=== PATIENT | male | born 1935 | race Caucasian/White ===

== ENCOUNTER 2019-02-13 11:13 | Inpatient (IN) | payer MEDICARE, OTHER ==
[~2019-02-13] VITALS: Ht 157.5 cm; Wt 61.4 kg
[2019-02-13] MEDS ORDERED: ALPR0.254 PO (14:21)
[2019-02-13] MEDS ORDERED: CARB1TAB2 PO (14:24)
[2019-02-13] MEDS ORDERED: ESCI20TA PO (14:24)
[2019-02-13] MEDS ORDERED: LUBI24CA7 PO (14:25)
[2019-02-13] MEDS ORDERED: MIRA50TA PO (14:25)
[2019-02-13] MEDS ORDERED: ROTI1PAT7 TD (14:26)
[2019-02-13] MEDS ORDERED: NUPLAZID PO (14:31)
--- NOTE | 2019-02-13 15:18 | ERD ---
ER Documentation Chief Complaint Chief Complaint c/o lower abdominal pain with constipation, recently diagnosed with volvulu HPI This is a 83-year-old male who presents for evaluation of constipation. History obtained mostly from the patient's daughter at the bedside, he has history of Parkinson's disease, and admitted about 2 weeks ago at [facility] was reportedly diagnosed with a volvulus. He had endoscopy done, but he has experienced a significant improvement in over the last 3 days, he has not had a bowel movement or passed stool. He has not had a fever, no urinary symptoms. ROS All systems reviewed and are negative except as per history of present illness. Medications Home Meds Reported Medications [Nuplazid] No Conflict Check, 34 MG PO DAILY 02/13/19 Rotigotine (NEUPRO) 1 Each Patch.td24, 1 EACH TD DAILY 8MG 02/13/19 Mirabegron (Myrbetriq) 50 Mg Tab.er.24h, 50 MG PO DAILY, TAB 02/13/19 Lubiprostone* (Amitiza*) 24 Mcg Capsule, 24 MCG PO BID, #60 CAP 02/13/19 Escitalopram Oxalate* (Lexapro*) 20 Mg Tablet, 20 MG PO DAILY, #30 TAB 02/13/19 Carbidopa/Levodopa (Sinemet 25-100 mg Tablet) 1 Each Tablet, 1 EACH PO TID, TAB 02/13/19 Alprazolam* (Alprazolam*) 0.25 Mg Tablet, 0.25 MG PO BID PRN for ANXIETY, TAB 02/13/19 Allergies Allergies: Coded Allergies: No Known Allergy (Unverified , 02/13/19) PMhx/Soc Medical and Surgical Hx: pt denies Surgical Hx History of Surgery: No Anesthesia Reaction: No Hx Neurological Disorder: Yes (Parkinsons) Hx Respiratory Disorders: No Hx Cardiac Disorders: No Hx Psychiatric Problems: No Hx Miscellaneous Medical Probl: No Hx Alcohol Use: No Hx Substance Use: No Hx Tobacco Use: No Smoking Status: Never smoker Physical Exam Vitals Vital Signs Date Temp Pulse Resp B/P (MAP) Pulse Ox O2 O2 Flow FiO2 Time Delivery Rate 02/13/19 77 12 166/82 98 Room Air 12:29 (110) 02/13/19 97.1 75 20 165/75 97 11:33 (105) Physical Exam Const: No acute distress, well-developed well-nourished Head: Atraumatic Eyes: Normal Conjunctiva ENT: Normal External Ears, Nose and Mouth. Neck: Full range of motion. No meningismus. Resp: Clear to auscultation bilaterally Cardio: Regular rate and rhythm, no murmurs Abd: Soft, non tender, there is mild distention, no focal tenderness, no rebound or guarding. Normal bowel sounds Skin: No petechiae or rashes Back: No midline or flank tenderness Ext: No cyanosis, or edema Neur: Awake and alert. Alert and oriented x3, pill-rolling tremor consistent with Parkinson's disease Psych: Normal Mood and Affect Result Diagram: 02/13/19 1227 02/13/19 1227 Results 24 hrs Laboratory Tests Test 02/13/19 12:27 02/13/19 14:09 White Blood Count 7.1 10^3/ul Red Blood Count 5.12 10^6/ul Hemoglobin 14.5 g/dl Hematocrit 44.6 % Mean Corpuscular Volume 87.1 fl Mean Corpuscular Hemoglobin 28.3 pg Mean Corpuscular Hemoglobin Concent 32.5 g/dl Red Cell Distribution Width 13.4 % Platelet Count 174 10^3/UL Mean Platelet Volume 9.9 fl Immature Granulocytes % 0.300 % Neutrophils % 74.8 % Lymphocytes % 17.3 % Monocytes % 7.1 % Eosinophils % 0.1 % Basophils % 0.4 % Nucleated Red Blood Cells % 0.0 /100WBC Immature Granulocytes # 0.020 10^3/ul Neutrophils # 5.3 10^3/ul Lymphocytes # 1.2 10^3/ul Monocytes # 0.5 10^3/ul Eosinophils # 0.0 10^3/ul Basophils # 0.0 10^3/ul Nucleated Red Blood Cells # 0.0 10^3/ul Sodium Level 140 mmol/L Potassium Level 4.2 mmol/L Chloride Level 103 mmol/L Carbon Dioxide Level 29 mmol/L Anion Gap 8 Blood Urea Nitrogen 23 mg/dl Creatinine 1.06 mg/dl Est Glomerular Filtrat Rate mL/min mL/min Glucose Level 115 mg/dl Calcium Level 9.5 mg/dl Total Bilirubin 0.6 mg/dl Direct Bilirubin 0.00 mg/dl Indirect Bilirubin 0.6 mg/dl Aspartate Amino Transf (AST/SGOT) 28 IU/L Alanine Aminotransferase (ALT/SGPT) 26 IU/L Alkaline Phosphatase 87 IU/L Troponin I < 0.012 ng/ml Total Protein 8.6 g/dl Albumin 4.5 g/dl Globulin 4.10 g/dl Albumin/Globulin Ratio 1.09 Lipase 163 U/L Bedside Urine pH (LAB) 6.5 Bedside Urine Protein (LAB) Negative Bedside Urine Glucose (UA) Negative Bedside Urine Ketones (LAB) Negative Bedside Urine Blood 2+ Bedside Urine Nitrite (LAB) Negative Bedside Urine Leukocyte Esterase (L Negative [place] [id number] Radiology Main Line: [phone] DIAGNOSTIC IMAGING REPORT Patient: KEVIN HERNANDEZ : 1935 Age: 83 Sex: M MR #: [id number] DOS: 02/13/19 1214 Ordering MD: FELIPA RAINES MD Location: E/R Room/Bed: PROCEDURE: CT abdomen and pelvis without contrast. CLINICAL INDICATION: Abdominal pain. TECHNIQUE: CT scan of the abdomen and pelvis without contrast was performed. Sagittal and coronal reformatted images were obtained from the axial source images. DICOM images are available. One or more of the following dose reduction techniques were used: Automated exposure control, adjustment of the mA and/or kV according to patient size, use of iterative reconstruction technique. CTDI = 6.20 mGy; DLP = 360.15 mGy-cm COMPARISON: None. FINDINGS: Visualized lower thorax: Traction bronchiectasis and pattern of interstitial lung disease, most likely idiopathic pulmonary fibrosis, is noted without evidence for acute infiltrate. There is no evidence for pleural effusion. Liver, gallbladder, pancreas and spleen: The liver is normal and size, contour and attenuation. There is no evidence for a liver mass or ductal dilatation. The gallbladder is unremarkable. No common bile duct abnormality is demonstrated. The pancreas is unremarkable. The spleen is normal in size with a superficial capsular calcification possibly the sequela of prior trauma or infection. Adrenal glands and genitourinary system: The adrenal glands are normal b ilaterally. The kidneys are normal and size, contour and attenuation with no evidence for masses, calculi or hydronephrosis. The ureters are unremarkable. No urinary bladder abnormality is demonstrated. The prostate gland is top normal in size. A small fat-containing right inguinal hernia is present. The area of the scrotum is unremarkable. Gastrointestinal system: A small sliding hiatal hernia is present the remainder of the stomach is normal in caliber without evidence of wall thickening. A small second portion duodenal diverticulum is incidentally noted. The small bowel is normal in caliber with no ileus, obstruction or wall thickening. The appendix and surrounding fat are within the limits of normal. Some hyperdense material similar to enteric contrast media is present throughout much of the colon. Copious fecal debris and gas are seen throughout the proximal and mid colon with some collapse of the distal colon without evidence for a colonic mass. Partial colonic obstruction is difficult to exclude. No pneumatosis, interloop ascites or mesenteric vascular engorgement is noted Peritoneum, retroperitoneum, lymph nodes and vessels: The abdominal aorta is normal in caliber. There is moderate aortic atherosclerotic calcification. The inferior vena cava is unremarkable. There is no evidence for adenopathy or mass. There is no ascites. No pneumoperitoneum is present Osseous structures and musculoskeletal findings: There is no fracture, lytic or blastic lesion. Bridging syndesmophytes of the visualized thoracic spine most likely reflect diffuse idiopathic skeletal hyperostosis. No muscular abnormality or soft tissue pathology is present. RPTAT:HJJR IMPRESSION: 1. Marked proximal and mid colonic distension raises concern for partial distal colonic obstruction versus colonic ileus, findings of uncertain etiology as no mass or transition point is identified. Follow-up evaluation is recommended. 2. No pneumoperitoneum, ascites or pneumatosis is seen, there is no mesenteric vascular engorgement. 3. There is a small sliding hiatal hernia and an incidental second portion duodenal diverticulum but no gastric or small bowel obstruction pattern is present. 4. Aortic atherosclerosis is present. Physician Brittany Date Time Electronically viewed and signed by Physician Brittany on 02/13/2019 13:49 JR/ CC: FELIPA RAINES MD [id number] Procedures/MDM 83-year-old male presents with obstipation. He had no infectious symptoms, and remained hemodynamically stable in the emergency department, his labs are overall unremarkable, his CT abdomen pelvis showed concern for partial distal colonic obstruction, versus ileus. I suspect that this most likely secondary to his Parkinson's disease, however male malignancy is also consideration, though per the patient's daughter he did have a work-up. Given his persistent pain, and no alleviation in symptoms, he will require admission. Accepting Care Team: Current data and ongoing care discussed. Primary: Jin Consulting: Leonidas EKG: Rate/Rhythm: Normal Sinus Rhythm QRS, ST, T-waves: No changes consistent w/ acute ischemia Impression: No evidence of ischemia or arrhythmia Departure Diagnosis: Primary Impression: Abdominal pain Abdominal location: unspecified location Qualified Codes: R10.9 - Unspecified abdominal pain Condition: Serious FELIPA RAINES MD Feb 13, 2019 15:18
[2019-02-13] MEDS ORDERED: ACETAMINOPHEN 325 MG TAB PO PRN ×2 (15:30→19:30)
[2019-02-13] MEDS ORDERED: ONDANSETRON 4 MG INJ IV PRN ×2 (15:30→19:30)
[2019-02-13 18:15] VITALS: BP 163/68; PULSE 80; RESP 20
[2019-02-13] MEDS ORDERED: NACL 0.9% 3 ML SYG IV SCH (19:30)
[2019-02-13] MEDS ORDERED: BISACODYL (EC) 5 MG TAB PO PRN (19:30)
[2019-02-13] MEDS ORDERED: MAGNESIUM HYDROXIDE 30ML CUP PO PRN (19:30)
[2019-02-13] MEDS ORDERED: BISACODYL (EC) 5 MG TAB PO ONE (19:30)
[2019-02-13] MEDS ORDERED: HYDROCODONE/APAP (5/325) TAB PO PRN (19:30)
[2019-02-13] MEDS ORDERED: NA PHOSPHATE/BIPHOS 133 ML ENEMA PR PRN (19:30)
[2019-02-13] MEDS ORDERED: morphine 2 MG INJ IV PRN (19:30)
--- NOTE | 2019-02-13 19:39 | HP ---
Date/Time of Note Date/Time of Note DATE: 02/13/19 TIME: 19:27 Assessment/Plan VTE Prophylaxis SCD applied (from Nsg): Yes Pharmacological prophylaxis: NA/contraindicated Pharm contraindication: low risk/ambulating Lines/Catheters IV Catheter Type (from Nrsg): Saline Lock Assessment/Plan Hospital Course 1. Abdominal pain secondary to constipation/ileus Patient's history of Parkinson's and lack of mass or transition point on CT suggest ileus over bowel obstruction Treat with senna, Colace, Dulcolax as well as milk of magnesia and enemas as needed Continue home Amitiza Simethicone for gas pain Surgery consultation has been obtained 2. History of Parkinson's Continue home meds Neurology consultation obtained 3. Depression Continue home Lexapro Prophylaxis: SCDs Result Diagram: 02/13/19 1227 02/13/19 1227 Results 24hrs Laboratory Tests Test 02/13/19 12:27 02/13/19 14:09 White Blood Count 7.1 Red Blood Count 5.12 Hemoglobin 14.5 Hematocrit 44.6 Mean Corpuscular Volume 87.1 Mean Corpuscular Hemoglobin 28.3 L Mean Corpuscular Hemoglobin Concent 32.5 Red Cell Distribution Width 13.4 Platelet Count 174 Mean Platelet Volume 9.9 Immature Granulocytes % 0.300 Neutrophils % 74.8 Lymphocytes % 17.3 Monocytes % 7.1 Eosinophils % 0.1 Basophils % 0.4 Nucleated Red Blood Cells % 0.0 Immature Granulocytes # 0.020 Neutrophils # 5.3 Lymphocytes # 1.2 Monocytes # 0.5 Eosinophils # 0.0 Basophils # 0.0 Nucleated Red Blood Cells # 0.0 Sodium Level 140 Potassium Level 4.2 Chloride Level 103 Carbon Dioxide Level 29 Anion Gap 8 Blood Urea Nitrogen 23 H Creatinine 1.06 Est Glomerular Filtrat Rate mL/min Glucose Level 115 Calcium Level 9.5 Total Bilirubin 0.6 Direct Bilirubin 0.00 Indirect Bilirubin 0.6 Aspartate Amino Transf (AST/SGOT) 28 Alanine Aminotransferase (ALT/SGPT) 26 Alkaline Phosphatase 87 Troponin I < 0.012 Total Protein 8.6 H Albumin 4.5 Globulin 4.10 H Albumin/Globulin Ratio 1.09 Lipase 163 Bedside Urine pH (LAB) 6.5 Bedside Urine Protein (LAB) Negative Bedside Urine Glucose (UA) Negative Bedside Urine Ketones (LAB) Negative Bedside Urine Blood 2+ H Bedside Urine Nitrite (LAB) Negative Bedside Urine Leukocyte Esterase (L Negative HPI/ROS Admit Date/Time Admit Date/Time Feb 13, 2019 at 15:19 Hx of Present Illness Patient is an 83-year-old male with a history of Parkinson's depression who pres ents with evaluation. Patient presents with constipation reports no bowel movement for last 4 or 5 days, patient reportedly was admitted at [facility] 2 weeks ago with similar symptoms, endoscopy was done but results are unknown. Patient reports pain in the lower abdomen, CT abdomen shows marked proximal and mid colonic distention raising concern for partial distal colonic obstruction versus colonic ileus, no mass or transition point is identified. Story is provided by patient's daughter who is bedside, patient is a poor historian. Patient has no other complaints this time. ROS Constitutional: no complaints, improved Eyes: no complaints ENT: no complaints Respiratory: no complaints Cardiovascular: no complaints Gastrointestinal: pain, constipation Genitourinary: no complaints Musculoskeletal: no complaints Skin: no complaints Neurologic: no complaints Endocrine: no complaints Lymphatic: no complaints Psychological: no complaints, nl mood/affect Immunologic: no complaints PMH/Family/Social Past Medical History Parkinson's Medications Current Medications Ondansetron HCl (Zofran Inj) 4 mg BRIDGE ORDER PRN IV NAUSEA/VOMITING; Start 02/13/19 at 15:30; Stop 02/14/19 at 15:29 Acetaminophen (Tylenol Tab) 650 mg ER BRIDGE PRN PO .MILD PAIN 1-3 OR TEMP; Start 02/13/19 at 15:30; Stop 02/14/19 at 15:29 Coded Allergies: No Known Allergy (Unverified , 02/13/19) Past Surgical History Past Surgical Hx: no surgical history Family History Significant Family History: no pertinent family hx Social History Alcohol Use: none Smoking Status: Never smoker Drug Use: none Exam/Review of Systems Vital Signs Vitals Vital Signs Date Temp Pulse Resp B/P (MAP) Pulse Ox O2 O2 Flow FiO2 Time Delivery Rate 02/13/19 97.8 80 20 163/68 96 Room Air 18:15 (99) Exam Constitutional: alert, oriented Respiratory: clear to auscultation Cardiovascular: regular rate and rhythm Gastrointestinal: soft; No distended Musculoskeletal: nl extremities to inspection KEVIN PELAEZ Feb 13, 2019 19:37
[2019-02-13 19:45] VITALS: BP 138/62; PULSE 76; RESP 18; Ht 157.5 cm; Wt 61.4 kg
[2019-02-13] MEDS: [UNRECOGNIZED DRUG - OTHER] XX SCH (20:00)
[2019-02-13] MEDS: 1/2 NS + KCL 20 MEQ 1,000 ML IV SCH (20:03)
[2019-02-13] MEDS ORDERED: [UNRECOGNIZED DRUG - OTHER] XX SCH (20:30)
[2019-02-13] MEDS: [UNRECOGNIZED DRUG - OTHER] XX SCH (20:30)
[2019-02-13] MEDS: (Mirabegron (Myrbetriq) 50 MG: PLEASE ASK FAMILY TO BRING IN XX SCH (20:30)
[2019-02-13] MEDS: CARBIDOPA/LEVODOPA (25/100) TAB PO SCH (21:17)
[2019-02-13] MEDS: LUBIPROSTONE 24 MCG CAP PO SCH (21:17)
[2019-02-13] MEDS: SENNA TAB PO SCH (21:17)
[2019-02-13] MEDS: ALPRAZOLAM 0.25 MG TAB PO PRN (21:17)
[2019-02-13] MEDS: DOCUSATE SODIUM 100 MG CAP PO SCH (21:17)
[2019-02-13] MEDS: ZOLPIDEM 5 MG TAB PO PRN (22:39)
[2019-02-14 02:23] VITALS: BP 123/85; PULSE 72; RESP 18
[2019-02-14] MEDS: [UNRECOGNIZED DRUG - OTHER] XX SCH ×2 (04:00→12:00)
[2019-02-14] MEDS: (Mirabegron (Myrbetriq) 50 MG: PLEASE ASK FAMILY TO BRING IN XX SCH (04:16)
[2019-02-14] MEDS: [UNRECOGNIZED DRUG - OTHER] XX SCH ×2 (04:17→12:30)
[2019-02-14] MEDS: ALPRAZOLAM 0.25 MG TAB PO PRN ×2 (07:12→20:08)
[2019-02-14] MEDS: 1/2 NS + KCL 20 MEQ 1,000 ML IV SCH (07:38)
[2019-02-14 07:42] VITALS: BP 124/68; PULSE 82; RESP 19
[2019-02-14] MEDS: SENNA TAB PO SCH ×2 (08:30→20:09)
[2019-02-14] MEDS: CARBIDOPA/LEVODOPA (25/100) TAB PO SCH ×3 (08:30→20:09)
[2019-02-14] MEDS: DOCUSATE SODIUM 100 MG CAP PO SCH ×2 (08:30→20:06)
[2019-02-14] MEDS: LUBIPROSTONE 24 MCG CAP PO SCH ×2 (08:30→20:09)
[2019-02-14] MEDS: ESCITALOPRAM 10 MG TAB PO SCH (08:30)
[2019-02-14] MEDS ORDERED: NON-FORMULARY/PATIENT OWN MED (Mirabegron (Myrbetriq) 50 MG) PO SCH (09:00)
--- NOTE | 2019-02-14 09:55 | CONSI ---
Assessment/Plan Assessment/Plan Assessment/Plan (Recall) 83 M c/ reported Hx of Parkinson's disease x 20 years...who presents for evaluation of GI Sx.. 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 P: Increase Sinemet 25/100mg to 1.5 tabs tid for now Cont Neupro as ordered Agree w/ Lubiprostone if not complicated by excessive nausea.. Other constipation management per primary PT/OT as tolerated Will follow clinically Consultation Date/Type/Reason Admit Date/Time Feb 13, 2019 at 15:19 Type of Consult Neurology Reason for Consultation Parkinsons Requesting Provider: KEVIN PELAEZ Date/Time of Note DATE: 02/14/19 TIME: 09:46 Hx of Present Illness Patient is an 83-year-old male with a history of Parkinson's and depression, who presents with evaluation. Patient presents with constipation reports no bowel movement for last 4 or 5 days, patient reportedly was admitted at [facility] 2 weeks ago with similar symptoms, endoscopy was done but results are unknown. Patient reports pain in the lower abdomen, CT abdomen shows marked proximal and mid colonic distention raising concern for partial distal colonic obstruction versus colonic ileus, no mass or transition point is identified. Story is provided by patient's daughter who is bedside, patient is a poor historian. Patient has no other complaints this time. He does not presently recall who his neurologist is. per HPI Objective Exam Vitals Vital Signs Date Temp Pulse Resp B/P (MAP) Pulse Ox O2 O2 Flow FiO2 Time Delivery Rate 02/14/19 97.2 82 19 124/68 96 Room Air 07:42 (86) Intake and Output 02/13/19 02/13/19 02/14/19 1515:00 23:00 07:00 IntakeIntake Total 1000 ml BalanceBalance 1000 ml Exam PE: Gen Appearance: No Apparent Distress HEENT: Normocephalic Cardiovascular: Regular rate Lungs: Clear bilaterally Abdomen: Soft Extremities: Dry NE: The patient was alert and oriented. Language was normal. Fund of knowledge was adequate. Pupils were equal and reactive to light. There was no afferent pupillary defect. Visual pisano were normal. Funduscopic examination was limited. Extra-ocular movements were full. Ptosis was absent. There was no nystagmus. Facial sensation was normal. Face was symmetric with normal strength. Hearing was intact. Palate movements were normal. Neck strength was normal. There was normal tongue bulk and speed of movement. Speech was hypophonic.. Tone was increased w/ cogwheeling. Muscle bulk was normal. I did not see fasciculations. There were mild to moderate rest tremors. Arms and legs were symmetric. Vibration sensation was normal. Temperature and pinprick sensation was normal. Rapid alternating movements were normal. There was no dysmetria. There was no intention tremor. Gait was deferred due to bedrest. Arm and leg reflexes were symmetric. Martinez's sign was absent. Plantar response s were flexor. Results Result Diagram: 02/14/19 0435 02/14/19 0436 Results 24hrs Laboratory Tests Test 02/13/19 12:27 02/13/19 14:09 02/14/19 04:35 02/14/19 04:36 White Blood Count 7.1 5.5 # Red Blood Count 5.12 4.78 Hemoglobin 14.5 13.7 L Hematocrit 44.6 41.5 L Mean Corpuscular 87.1 86.8 Volume Mean Corpuscular 28.3 L 28.7 L Hemoglobin Mean Corpuscular 32.5 33.0 Hemoglobin Concent Red Cell 13.4 13.7 Distribution Width Platelet Count 174 172 Mean Platelet Volume 9.9 10.4 Immature 0.300 0.200 Granulocytes % Neutrophils % 74.8 57.4 Lymphocytes % 17.3 30.2 Monocytes % 7.1 9.9 Eosinophils % 0.1 1.8 Basophils % 0.4 0.5 Nucleated Red Blood 0.0 0.0 Cells % Immature 0.020 0.010 Granulocytes # Neutrophils # 5.3 3.1 Lymphocytes # 1.2 1.7 Monocytes # 0.5 0.5 Eosinophils # 0.0 0.1 Basophils # 0.0 0.0 Nucleated Red Blood 0.0 0.0 Cells # Sodium Level 140 138 Potassium Level 4.2 3.9 Chloride Level 103 105 Carbon Dioxide Level 29 25 Anion Gap 8 8 Blood Urea Nitrogen 23 H 19 Creatinine 1.06 1.04 Est Glomerular Filtrat Rate mL/min Glucose Level 115 103 Calcium Level 9.5 9.4 Total Bilirubin 0.6 Direct Bilirubin 0.00 Indirect Bilirubin 0.6 Aspartate Amino 28 Transf (AST/SGOT) Alanine 26 Aminotransferase (AL T/SGPT) Alkaline Phosphatase 87 Troponin I < 0.012 Total Protein 8.6 H Albumin 4.5 Globulin 4.10 H Albumin/Globulin 1.09 Ratio Lipase 163 Bedside Urine pH 6.5 (LAB) Bedside Urine Negative Protein (LAB) Bedside Urine Negative Glucose (UA) Bedside Urine Negative Ketones (LAB) Bedside Urine Blood 2+ H Bedside Urine Negative Nitrite (LAB) Bedside Urine Negative Leukocyte Esterase (L Hemoglobin A1c 5.6 Phosphorus Level 3.9 Magnesium Level 2.0 Past Medical History reviewed Home Meds Reported Medications [Nuplazid] No Conflict Check, 34 MG PO DAILY 02/13/19 Rotigotine (NEUPRO) 1 Each Patch.td24, 1 EACH TD DAILY 8MG 02/13/19 Mirabegron (Myrbetriq) 50 Mg Tab.er.24h, 50 MG PO DAILY, TAB 02/13/19 Lubiprostone* (Amitiza*) 24 Mcg Capsule, 24 MCG PO BID, #60 CAP 02/13/19 Escitalopram Oxalate* (Lexapro*) 20 Mg Tablet, 20 MG PO DAILY, #30 TAB 02/13/19 Carbidopa/Levodopa (Sinemet 25-100 mg Tablet) 1 Each Tablet, 1 EACH PO TID, TAB 02/13/19 Alprazolam* (Alprazolam*) 0.25 Mg Tablet, 0.25 MG PO BID PRN for ANXIETY, TAB 02/13/19 Medications Current Medications Ondansetron HCl (Zofran Inj) 4 mg BRIDGE ORDER PRN IV NAUSEA/VOMITING; Start 02/13/19 at 15:30; Stop 02/14/19 at 15:29 Acetaminophen (Tylenol Tab) 650 mg ER BRIDGE PRN PO .MILD PAIN 1-3 OR TEMP; Start 02/13/19 at 15:30; Stop 02/14/19 at 15:29 Alprazolam (Xanax) 0.25 mg BID PRN PO ANXIETY Last administered on 02/14/19at 07:12; Admin Dose 0.25 MG; Start 02/13/19 at 19:30 Carbidopa/Levodopa (Sinemet (25/ 100)) 1 tab TID PO Last administered on 02/14/19at 08:30; Admin Dose 1 TAB; Start 02/13/19 at 21:00 Escitalopram Oxalate (Lexapro) 20 mg DAILY PO Last administered on 02/14/19at 08:30; Admin Dose 20 MG; Start 02/14/19 at 09:00 Lubiprostone (Amitiza) 24 mcg BID PO Last administered on 02/14/19at 08:30; Admin Dose 24 MCG; Start 02/13/19 at 21:00 Miscellaneous Information 50 mg DAILY PO ; Start 02/14/19 at 09:00; Status UNV Miscellaneous Information 1 each DAILY TD ; Start 02/14/19 at 09:00; Status UNV Miscellaneous Information 34 mg DAILY PO ; Start 02/14/19 at 09:00; Status UNV Potassium Chloride/Sodium Chloride 1,000 ml @ 80 mls/hr [id number] IV Last administered on 02/14/19at 07:38; Admin Dose 80 MLS/HR; Start 02/13/19 at 19:27 IV Flush (NS 3 ml) 3 ml PER PROTOCOL IV ; Start 02/13/19 at 19:30 Ondansetron HCl (Zofran Inj) 4 mg Q6H PRN IV NAUSEA/VOMITING; Start 02/13/19 at 19:30 Acetaminophen (Tylenol Tab) 650 mg Q6H PRN PO .PAIN 1-3 OR TEMP; Start 02/13/19 at 19:30 Acetaminophen/ Hydrocodone Bitart ([place] (5/325)) 1 tab Q6H PRN PO .MOD PAIN 4- 6; Start 02/13/19 at 19:30 Morphine Sulfate (morphine) 2 mg Q4H PRN IV .SEVERE PAIN 7-10; Start 02/13/19 at 19:30 Docusate Sodium (Colace) 200 mg Q12H PO Last administered on 02/14/19at 08:30; Admin Dose 200 MG; Start 02/13/19 at 19:30 Magnesium Hydroxide (Milk Of Mag) 30 ml DAILY PRN PO .CONSTIPATION; Start 02/13/19 at 19:30 Bisacodyl (Dulcolax) 5 mg DAILY PRN PO .CONSTIPATION; Start 02/13/19 at 19:30 Sodium Biphosphate/ Sodium Phosphate (Fleet Enema) 133 ml DAILY PRN MD .CONSTIPATION; Start 02/13/19 at 19:30 Zolpidem Tartrate (Ambien) 5 mg QHS PRN PO .INSOMNIA Last administered on 02/13/19at 22:39; Admin Dose 5 MG; Start 02/13/19 at 19:30 Senna (Senokot) 2 tab BID PO Last administered on 02/14/19at 08:30; Admin Dose 2 TAB; Start 02/13/19 at 21:00 Miscellaneous Information (*Order Clarification Bulletin) [Nuplazid] 34 MG, PLEASE ASK FAMILY... Q8H XX ; Start 02/13/19 at 20:00 Miscellaneous Information (*Order Clarification Bulletin) *Rotigotine (Neupro): PLEASE ... Q8H XX ; Start 02/13/19 at 20:30 Miscellaneous Information (*Order Clarification Bulletin) (Mirabegron (Myrbetriq) 50 MG: PLE... Q8H XX ; Start 02/13/19 at 20:30 Simethicone (Mylicon) 80 mg Q8 PO Last administered on 02/14/19at 05:59; Admin Dose 80 MG; Start 02/13/19 at 22:00 Allergies: Coded Allergies: No Known Allergy (Unverified , 02/13/19) Past Surgical History Past Surgical Hx: no surgical history Social History Alcohol Use: none Smoking Status: Never smoker Drug Use: none SUSANNA GALLEGOS Feb 14, 2019 09:55
[2019-02-14] MEDS ORDERED: PEG/ELECTROLYTES 4L BTL PO ONE (10:30)
--- NOTE | 2019-02-14 10:46 | CONS ---
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 Patient needs initial aggressive management of his constipation symptoms, if he fails management then surgical options can be considered. Option 1 would be a diverting colostomy vs. Sigmoid resection and primary anastomosis. Recommend: 1. Obtaining records from recent hospitalization 2. Plan of care from PCP and Neurologist 3. GI consult . Consultation Date/Type/Reason Admit Date/Time Feb 13, 2019 at 15:19 Type of Consult Gen Surgery Reason for Consultation Evaluation of abdominal pain Date/Time of Note DATE: 02/14/19 TIME: 10:37 Hx of Present Illness Patient is an 83-year-old male with a history of Parkinson's depression who presents with evaluation. Patient presents with constipation reports no bowel movement for last 4 or 5 days, patient reportedly was admitted at [facility] 2 weeks ago with similar symptoms, endoscopy was done but r esults are unknown. Patient reports pain in the lower abdomen, CT abdomen shows marked proximal and mid colonic distention raising concern for partial distal colonic obstruction versus colonic ileus, no mass or transition point is identified. Story is provided by patient's daughter who is bedside, patient is a poor historian. Patient has no other complaints this time. Past Medical History Home Meds Reported Medications [Nuplazid] No Conflict Check, 34 MG PO DAILY 02/13/19 Rotigotine (NEUPRO) 1 Each Patch.td24, 1 EACH TD DAILY 8MG 02/13/19 Mirabegron (Myrbetriq) 50 Mg Tab.er.24h, 50 MG PO DAILY, TAB 02/13/19 Lubiprostone* (Amitiza*) 24 Mcg Capsule, 24 MCG PO BID, #60 CAP 02/13/19 Escitalopram Oxalate* (Lexapro*) 20 Mg Tablet, 20 MG PO DAILY, #30 TAB 02/13/19 Carbidopa/Levodopa (Sinemet 25-100 mg Tablet) 1 Each Tablet, 1 EACH PO TID, TAB 02/13/19 Alprazolam* (Alprazolam*) 0.25 Mg Tablet, 0.25 MG PO BID PRN for ANXIETY, TAB 02/13/19 Medications Current Medications Alprazolam (Xanax) 0.25 mg BID PRN PO ANXIETY Last administered on 02/14/19at 07:12; Admin Dose 0.25 MG; Start 02/13/19 at 19:30 Escitalopram Oxalate (Lexapro) 20 mg DAILY PO Last administered on 02/14/19 08:30; Admin Dose 20 MG; Start 02/14/19 at 09:00 Lubiprostone (Amitiza) 24 mcg BID PO Last administered on 02/14/19 08:30; Admin Dose 24 MCG; Start 02/13/19 at 21:00 Miscellaneous Information 1 each DAILY TD ; Start 02/14/19 at 09:00; Status UNV Miscellaneous Information 34 mg DAILY PO ; Start 02/14/19 at 09:00; Status UNV IV Flush (NS 3 ml) 3 ml PER PROTOCOL IV ; Start 02/13/19 at 19:30 Ondansetron HCl (Zofran Inj) 4 mg Q6H PRN IV NAUSEA/VOMITING; Start 02/13/19 at 19:30 Acetaminophen (Tylenol Tab) 650 mg Q6H PRN PO .PAIN 1-3 OR TEMP; Start 02/13/19 at 19:30 Docusate Sodium (Colace) 200 mg Q12H PO Last administered on 02/14/19 08:30; Admin Dose 200 MG; Start 02/13/19 at 19:30 Magnesium Hydroxide (Milk Of Mag) 30 ml DAILY PRN PO .CONSTIPATION; Start 02/13/19 at 19:30 Bisacodyl (Dulcolax) 5 mg DAILY PRN PO .CONSTIPATION; Start 02/13/19 at 19:30 Sodium Biphosphate/ Sodium Phosphate (Fleet Enema) 133 ml DAILY PRN SC .CONSTIPATION; Start 02/13/19 at 19:30 Zolpidem Tartrate (Ambien) 5 mg QHS PRN PO .INSOMNIA Last administered on 02/13/19at 22:39; Admin Dose 5 MG; Start 02/13/19 at 19:30 Senna (Senokot) 2 tab BID PO Last administered on 02/14/19 08:30; Admin Dose 2 TAB; Start 02/13/19 at 21:00 Miscellaneous Information (*Order Clarification Bulletin) [Nuplazid] 34 MG, PLEASE ASK FAMILY... Q8H XX ; Start 02/13/19 at 20:00 Miscellaneous Information (*Order Clarification Bulletin) *Rotigotine (Neupro): PLEASE ... Q8H XX ; Start 02/13/19 at 20:30 Simethicone (Mylicon) 80 mg Q8 PO Last administered on 02/14/19at 05:59; Admin Dose 80 MG; Start 02/13/19 at 22:00 Carbidopa/Levodopa (Sinemet (25/ 100)) 1.5 tab TID PO ; Start 02/14/19 at 13:00 Allergies: Coded Allergies: No Known Allergy (Unverified , 02/13/19) Past Surgical History Past Surgical Hx: no surgical history Social History Alcohol Use: none Smoking Status: Never smoker Drug Use: none Exam/Review of Systems Exam Vitals Vital Signs Date Temp Pulse Resp B/P (MAP) Pulse Ox O2 O2 Flow FiO2 Time Delivery Rate 02/14/19 97.2 82 19 124/68 96 Room Air 07:42 (86) Intake and Output 02/13/19 02/13/19 02/14/19 1515:00 23:00 07:00 IntakeIntake Total 1000 ml BalanceBalance 1000 ml Results Result Diagram: 02/14/19 0435 02/14/19 0436 Results 24hrs Laboratory Tests Test 02/13/19 12:27 02/13/19 14:09 02/14/19 04:35 02/14/19 04:36 White Blood Count 7.1 5.5 # Red Blood Count 5.12 4.78 Hemoglobin 14.5 13.7 L Hematocrit 44.6 41.5 L Mean Corpuscular 87.1 86.8 Volume Mean Corpuscular 28.3 L 28.7 L Hemoglobin Mean Corpuscular 32.5 33.0 Hemoglobin Concent Red Cell 13.4 13.7 Distribution Width Platelet Count 174 172 Mean Platelet Volume 9.9 10.4 Immature 0.300 0.200 Granulocytes % Neutrophils % 74.8 57.4 Lymphocytes % 17.3 30.2 Monocytes % 7.1 9.9 Eosinophils % 0.1 1.8 Basophils % 0.4 0.5 Nucleated Red Blood 0.0 0.0 Cells % Immature 0.020 0.010 Granulocytes # Neutrophils # 5.3 3.1 Lymphocytes # 1.2 1.7 Monocytes # 0.5 0.5 Eosinophils # 0.0 0.1 Basophils # 0.0 0.0 Nucleated Red Blood 0.0 0.0 Cells # Sodium Level 140 138 Potassium Level 4.2 3.9 Chloride Level 103 105 Carbon Dioxide Level 29 25 Anion Gap 8 8 Blood Urea Nitrogen 23 H 19 Creatinine 1.06 1.04 Est Glomerular Filtrat Rate mL/min Glucose Level 115 103 Calcium Level 9.5 9.4 Total Bilirubin 0.6 Direct Bilirubin 0.00 Indirect Bilirubin 0.6 Aspartate Amino 28 Transf (AST/SGOT) Alanine 26 Aminotransferase (AL T/SGPT) Alkaline Phosphatase 87 Troponin I < 0.012 Total Protein 8.6 H Albumin 4.5 Globulin 4.10 H Albumin/Globulin 1.09 Ratio Lipase 163 Bedside Urine pH 6.5 (LAB) Bedside Urine Negative Protein (LAB) Bedside Urine Negative Glucose (UA) Bedside Urine Negative Ketones (LAB) Bedside Urine Blood 2+ H Bedside Urine Negative Nitrite (LAB) Bedside Urine Negative Leukocyte Esterase (L Hemoglobin A1c 5.6 Phosphorus Level 3.9 Magnesium Level 2.0 Imaging Imaging FINDINGS: Visualized lower thorax: Traction bronchiectasis and pattern of interstitial lung disease, most likely idiopathic pulmonary fibrosis, is noted without evidence for acute infiltrate. There is no evidence for pleural effusion. Liver, gallbladder, pancreas and spleen: The liver is normal and size, contour and attenuation. There is no evidence for a liver mass or ductal dilatation. The gallbladder is unremarkable. No common bile duct abnormality is demonstrated. The pancreas is unremarkable. The spleen is normal in size with a superficial capsular calcification possibly the sequela of prior trauma or infection. Adrenal glands and genitourinary system: The adrenal glands are normal bila terally. The kidneys are normal and size, contour and attenuation with no evidence for masses, calculi or hydronephrosis. The ureters are unremarkable. No urinary bladder abnormality is demonstrated. The prostate gland is top normal in size. A small fat-containing right inguinal hernia is present. The area of the scrotum is unremarkable. Gastrointestinal system: A small sliding hiatal hernia is present the remainder of the stomach is normal in caliber without evidence of wall thickening. A small second portion duodenal diverticulum is incidentally noted. The small bowel is normal in caliber with no ileus, obstruction or wall thickening. The appendix and surrounding fat are within the limits of normal. Some hyperdense material similar to enteric contrast media is present throughout much of the colon. Copious fecal debris and gas are seen throughout the proximal and mid colon with some collapse of the distal colon without evidence for a colonic mass. Partial colonic obstruction is difficult to exclude. No pneumatosis, interloop ascites or mesenteric vascular engorgement is noted Peritoneum, retroperitoneum, lymph nodes and vessels: The abdominal aorta is normal in caliber. There is moderate aortic atherosclerotic calcification. The inferior vena cava is unremarkable. There is no evidence for adenopathy or mass. There is no ascites. No pneumoperitoneum is present Osseous structures and musculoskeletal findings: There is no fracture, lytic or blastic lesion. Bridging syndesmophytes of the visualized thoracic spine most likely reflect diffuse idiopathic skeletal hyperostosis. No muscular abnormality or soft tissue pathology is present. RPTAT:HJJR IMPRESSION: 1. Marked proximal and mid colonic distension raises concern for partial distal colonic obstruction versus colonic ileus, findings of uncertain etiology as no mass or transition point is identified. Follow-up evaluation is recommended. 2. No pneumoperitoneum, ascites or pneumatosis is seen, there is no mesenteric vascular engorgement. 3. There is a small sliding hiatal hernia and an incidental second portion duodenal diverticulum but no gastric or small bowel obstruction pattern is present. 4. Aortic atherosclerosis is present. Medications Medication Current Medications Alprazolam (Xanax) 0.25 mg BID PRN PO ANXIETY Last administered on 02/14/19at 07:12; Admin Dose 0.25 MG; Start 02/13/19 at 19:30 Escitalopram Oxalate (Lexapro) 20 mg DAILY PO Last administered on 02/14/19at 08:30; Admin Dose 20 MG; Start 02/14/19 at 09:00 Lubiprostone (Amitiza) 24 mcg BID PO Last administered on 02/14/19at 08:30; Admin Dose 24 MCG; Start 02/13/19 at 21:00 Miscellaneous Information 1 each DAILY TD ; Start 02/14/19 at 09:00; Status UNV Miscellaneous Information 34 mg DAILY PO ; Start 02/14/19 at 09:00; Status UNV IV Flush (NS 3 ml) 3 ml PER PROTOCOL IV ; Start 02/13/19 at 19:30 Ondansetron HCl (Zofran Inj) 4 mg Q6H PRN IV NAUSEA/VOMITING; Start 02/13/19 at 19:30 Acetaminophen (Tylenol Tab) 650 mg Q6H PRN PO .PAIN 1-3 OR TEMP; Start 02/13/19 at 19:30 Docusate Sodium (Colace) 200 mg Q12H PO Last administered on 02/14/19at 08:30; Admin Dose 200 MG; Start 02/13/19 at 19:30 Magnesium Hydroxide (Milk Of Mag) 30 ml DAILY PRN PO .CONSTIPATION; Start 02/13/19 at 19:30 Bisacodyl (Dulcolax) 5 mg DAILY PRN PO .CONSTIPATION; Start 02/13/19 at 19:30 Sodium Biphosphate/ Sodium Phosphate (Fleet Enema) 133 ml DAILY PRN SC .CONSTIPATION; Start 02/13/19 at 19:30 Zolpidem Tartrate (Ambien) 5 mg QHS PRN PO .INSOMNIA Last administered on 02/13/19at 22:39; Admin Dose 5 MG; Start 02/13/19 at 19:30 Senna (Senokot) 2 tab BID PO Last administered on 02/14/19at 08:30; Admin Dose 2 TAB; Start 02/13/19 at 21:00 Miscellaneous Information (*Order Clarification Bulletin) [Nuplazid] 34 MG, PLEASE ASK FAMILY... Q8H XX ; Start 02/13/19 at 20:00 Miscellaneous Information (*Order Clarification Bulletin) *Rotigotine (Neupro): PLEASE ... Q8H XX ; Start 02/13/19 at 20:30 Simethicone (Mylicon) 80 mg Q8 PO Last administered on 02/14/19at 05:59; Admin Dose 80 MG; Start 02/13/19 at 22:00 Carbidopa/Levodopa (Sinemet (25/ 100)) 1.5 tab TID PO ; Start 02/14/19 at 13:00 ROB HERNANDEZ MD Feb 14, 2019 10:46
--- NOTE | 2019-02-14 11:54 | PN ---
Date/Time of Note Date/Time of Note DATE: 02/14/19 TIME: 11:52 Assessment/Plan VTE Prophylaxis Risk score (from Ns)>0 risk: 4 SCD applied (from Nsg): Yes Pharmacological prophylaxis: heparin Lines/Catheters IV Catheter Type (from Nrsg): Saline Lock Assessment/Plan Hospital Course 83 yo male with h/o PD presents with abdominal pain and found to have marked constipation 2/2 ileus - ileus likely 2/2 autonomic neuropathy and medication side effects - Hold anticholinergics - Bowel regimen PD: - Management per neurology Result Diagram: 02/14/19 0435 02/14/19 0436 Results 24hrs Laboratory Tests Test 02/13/19 12:27 02/13/19 14:09 02/14/19 04:35 02/14/19 04:36 White Blood Count 7.1 5.5 # Red Blood Count 5.12 4.78 Hemoglobin 14.5 13.7 L Hematocrit 44.6 41.5 L Mean Corpuscular 87.1 86.8 Volume Mean Corpuscular 28.3 L 28.7 L Hemoglobin Mean Corpuscular 32.5 33.0 Hemoglobin Concent Red Cell 13.4 13.7 Distribution Width Platelet Count 174 172 Mean Platelet Volume 9.9 10.4 Immature 0.300 0.200 Granulocytes % Neutrophils % 74.8 57.4 Lymphocytes % 17.3 30.2 Monocytes % 7.1 9.9 Eosinophils % 0.1 1.8 Basophils % 0.4 0.5 Nucleated Red Blood 0.0 0.0 Cells % Immature 0.020 0.010 Granulocytes # Neutrophils # 5.3 3.1 Lymphocytes # 1.2 1.7 Monocytes # 0.5 0.5 Eosinophils # 0.0 0.1 Basophils # 0.0 0.0 Nucleated Red Blood 0.0 0.0 Cells # Sodium Level 140 138 Potassium Level 4.2 3.9 Chloride Level 103 105 Carbon Dioxide Level 29 25 Anion Gap 8 8 Blood Urea Nitrogen 23 H 19 Creatinine 1.06 1.04 Est Glomerular Filtrat Rate mL/min Glucose Level 115 103 Calcium Level 9.5 9.4 Total Bilirubin 0.6 Direct Bilirubin 0.00 Indirect Bilirubin 0.6 Aspartate Amino 28 Transf (AST/SGOT) Alanine 26 Aminotransferase (AL T/SGPT) Alkaline Phosphatase 87 Troponin I < 0.012 Total Protein 8.6 H Albumin 4.5 Globulin 4.10 H Albumin/Globulin 1.09 Ratio Lipase 163 Bedside Urine pH 6.5 (LAB) Bedside Urine Negative Protein (LAB) Bedside Urine Negative Glucose (UA) Bedside Urine Negative Ketones (LAB) Bedside Urine Blood 2+ H Bedside Urine Negative Nitrite (LAB) Bedside Urine Negative Leukocyte Esterase (L Hemoglobin A1c 5.6 Phosphorus Level 3.9 Magnesium Level 2.0 Subjective 24 Hr Interval Summary Free Text/Dictation Remains constipated Exam/Review of Systems Exam Vitals Vital Signs Date Temp Pulse Resp B/P (MAP) Pulse Ox O2 O2 Flow FiO2 Time Delivery Rate 02/14/19 97.2 82 19 124/68 96 Room Air 07:42 (86) Intake and Output 02/13/19 02/13/19 02/14/19 1515:00 23:00 07:00 IntakeIntake Total 1000 ml BalanceBalance 1000 ml Constitutional: alert, oriented, well developed Psych: no complaints, nl mood/affect Head: normocephalic, atraumatic Eyes: nl conjunctiva, EOMI, nl lids, nl sclera, PERRL ENMT: nl external ears & nose, nl lips & teeth, nl nasal mucosa & septum Neck: supple, non-tender Respiratory: clear to auscultation, normal air movement Cardiovascular: regular rate and rhythm, nl pulses Gastrointestinal: soft, nl liver, spleen, non-tender Musculoskeletal: nl extremities to inspection, nl gait and stance Extremities: normal pulses 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2 Monocytes % 7.1 9.9 Eosinophils % 0.1 1.8 Basophils % 0.4 0.5 Nucleated Red Blood 0.0 0.0 Cells % Immature 0.020 0.010 Granulocytes # Neutrophils # 5.3 3.1 Lymphocytes # 1.2 1.7 Monocytes # 0.5 0.5 Eosinophils # 0.0 0.1 Basophils # 0.0 0.0 Nucleated Red Blood 0.0 0.0 Cells # Sodium Level 140 138 Potassium Level 4.2 3.9 Chloride Level 103 105 Carbon Dioxide Level 29 25 Anion Gap 8 8 Blood Urea Nitrogen 23 H 19 Creatinine 1.06 1.04 Est Glomerular Filtrat Rate mL/min Glucose Level 115 103 Calcium Level 9.5 9.4 Total Bilirubin 0.6 Direct Bilirubin 0.00 Indirect Bilirubin 0.6 Aspartate Amino 28 Transf (AST/SGOT) Alanine 26 Aminotransferase (AL T/SGPT) Alkaline Phosphatase 87 Troponin I < 0.012 Total Protein 8.6 H Albumin 4.5 Globulin 4.10 H Albumin/Globulin 1.09 Ratio Lipase 163 Bedside Urine pH 6.5 (LAB) Bedside Urine Negative Protein (LAB) Bedside Urine Negative Glucose (UA) Bedside Urine Negative Ketones (LAB) Bedside Urine Blood 2+ H Bedside Urine Negative Nitrite (LAB) Bedside Urine Negative Leukocyte Esterase (L Hemoglobin A1c 5.6 Phosphorus Level 3.9 Magnesium Level 2.0 Medications Medication Current Medications Alprazolam (Xanax) 0.25 mg BID PRN PO ANXIETY Last administered on 02/14/19at 07:12; Admin Dose 0.25 MG; Start 02/13/19 at 19:30 Escitalopram Oxalate (Lexapro) 20 mg DAILY PO Last administered on 02/14/19at 08:30; Admin Dose 20 MG; Start 02/14/19 at 09:00 Lubiprostone (Amitiza) 24 mcg BID PO Last administered on 02/14/19at 08:30; Admin Dose 24 MCG; Start 02/13/19 at 21:00 Miscellaneous Information 1 each DAILY TD ; Start 02/14/19 at 09:00; Status UNV Miscellaneous Information 34 mg DAILY PO ; Start 02/14/19 at 09:00; Status UNV IV Flush (NS 3 ml) 3 ml PER PROTOCOL IV ; Start 02/13/19 at 19:30 Ondansetron HCl (Zofran Inj) 4 mg Q6H PRN IV NAUSEA/VOMITING; Start 02/13/19 at 19:30 Acetaminophen (Tylenol Tab) 650 mg Q6H PRN PO .PAIN 1-3 OR TEMP; Start 02/13/19 at 19:30 Docusate Sodium (Colace) 200 mg Q12H PO Last administered on 02/14/19at 08:30; Admin Dose 200 MG; Start 02/13/19 at 19:30 Magnesium Hydroxide (Milk Of Mag) 30 ml DAILY PRN PO .CONSTIPATION; Start 02/13/19 at 19:30 Bisacodyl (Dulcolax) 5 mg DAILY PRN PO .CONSTIPATION; Start 02/13/19 at 19:30 Sodium Biphosphate/ Sodium Phosphate (Fleet Enema) 133 ml DAILY PRN ND .CONSTIPATION; Start 02/13/19 at 19:30 Zolpidem Tartrate (Ambien) 5 mg QHS PRN PO .INSOMNIA Last administered on 02/13/19at 22:39; Admin Dose 5 MG; Start 02/13/19 at 19:30 Senna (Senokot) 2 tab BID PO Last administered on 02/14/19at 08:30; Admin Dose 2 TAB; Start 02/13/19 at 21:00 Miscellaneous Information (*Order Clarification Bulletin) [Nuplazid] 34 MG, PLEASE ASK FAMILY... Q8H XX ; Start 02/13/19 at 20:00 Miscellaneous Information (*Order Clarification Bulletin) *Rotigotine (Neupro): PLEASE ... Q8H XX ; Start 02/13/19 at 20:30 Simethicone (Mylicon) 80 mg Q8 PO Last administered on 02/14/19at 05:59; Admin Dose 80 MG; Start 02/13/19 at 22:00 Carbidopa/Levodopa (Sinemet (25/ 100)) 1.5 tab TID PO ; Start 02/14/19 at 13:00 JULOI CESAR VALLE MD Feb 14, 2019 11:54
[2019-02-14 14:21] VITALS: BP 115/56; PULSE 75; RESP 17
[2019-02-14] MEDS: NEUPRO TRANSDERM SCH (15:00)
[2019-02-14] MEDS ORDERED: NUPLAZID 34MG CAPSULE PO SCH (15:30)
[2019-02-14 19:41] VITALS: BP 137/64; PULSE 71; RESP 18
[2019-02-14] MEDS ORDERED: NUPLAZID 34 MG CAPSULE PO SCH (21:00)
[2019-02-14] MEDS: ZOLPIDEM 5 MG TAB PO PRN (21:25)
[2019-02-15 01:39] VITALS: BP 154/68; PULSE 66; RESP 18
[2019-02-15] MEDS: ALPRAZOLAM 0.25 MG TAB PO PRN ×2 (06:37→20:59)
[2019-02-15 07:35] VITALS: BP 147/65; PULSE 67; RESP 20
[2019-02-15] MEDS: SENNA TAB PO SCH ×2 (08:39→20:58)
[2019-02-15] MEDS: CARBIDOPA/LEVODOPA (25/100) TAB PO SCH ×3 (08:39→20:59)
[2019-02-15] MEDS: DOCUSATE SODIUM 100 MG CAP PO SCH ×2 (08:39→20:57)
[2019-02-15] MEDS: ESCITALOPRAM 10 MG TAB PO SCH (08:39)
[2019-02-15] MEDS: LUBIPROSTONE 24 MCG CAP PO SCH ×2 (08:39→20:58)
[2019-02-15] MEDS: NEUPRO TRANSDERM SCH (08:55)
[2019-02-15] MEDS ORDERED: LACTULOSE 30ML CUP PO SCH (10:30)
--- NOTE | 2019-02-15 13:14 | PN ---
Date/Time of Note Date/Time of Note DATE: 02/15/19 TIME: 13:13 Assessment/Plan VTE Prophylaxis Risk score (from Nsg)>0 risk: 4 SCD applied (from Nsg): Yes Pharmacological prophylaxis: heparin Lines/Catheters IV Catheter Type (from Nrsg): Saline Lock Urinary Cath still in place: No Assessment/Plan Hospital Course 83 yo male with h/o PD presents with abdominal pain and found to have marked constipation 2/2 ileus - ileus likely 2/2 autonomic neuropathy and medication side effects - Hold anticholinergics - Bowel regimen added lactulose today but I do not suspect that he will need reyes yahaira acutely. Were trying conservative measures first PD: - Management per neurology Result Diagram: 02/14/1943402/14/19435 Subjective 24 Hr Interval Summary Free Text/Dictation The patient is very stressed out about being told he may need a surgery. A lot of anxiety about this. I reassured him that this is an acutely necessary and that we can try conservative therapies first. I discussed with his daughter how much his constipation is affecting him he seems to get a great amount of anxiety over the previous months from this. That said it sounds that he is never really taken any laxatives Exam/Review of Systems Exam Vitals Vital Signs Date Temp Pulse Resp B/P (MAP) Pulse Ox O2 O2 Flow FiO2 Time Delivery Rate 02/15/19 98.1 67 20 147/65 93 07:35 (92) 02/14/19 Room Air 07:42 Intake and Output 02/14/19 02/14/19 02/15/19 1414:59 22:59 06:59 IntakeIntake Total 600 ml BalanceBalance 600 ml Constitutional: alert, oriented, well developed Psych: no complaints, nl mood/affect Head: normocephalic, atraumatic Eyes: nl conjunctiva, EOMI, nl lids, nl sclera, PERRL ENMT: nl external ears & nose, nl lips & teeth, nl nasal mucosa & septum Neck: supple, non-tender Respiratory: clear to auscultation, normal air movement Cardiovascular: regular rate and rhythm, nl pulses Gastrointestinal: soft, nl liver, spleen, non-tender Musculoskeletal: nl extremities to inspection, nl gait and stance Extremities: normal pulses 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, nl mental status, nl speech, nl strength Skin: nl turgor; No rash or lesions Lymph: nl lymph nodes Medications Medication Current Medications Alprazolam (Xanax) 0.25 mg BID PRN PO ANXIETY Last administered on 02/15/19 06:37; Admin Dose 0.25 MG; Start 02/13/19 at 19:30 Escitalopram Oxalate (Lexapro) 20 mg DAILY PO Last administered on 02/15/19 08:39; Admin Dose 20 MG; Start 02/14/19 at 09:00 Lubiprostone (Amitiza) 24 mcg BID PO Last administered on 02/15/19 08:39; Admin Dose 24 MCG; Start 02/13/19 at 21:00 Patient Own Medication 1 ea DAILY TRANSDERM Last administered on 02/15/19 08:55; Admin Dose 1 EA; Start 02/14/19 at 15:00 IV Flush (NS 3 ml) 3 ml PER PROTOCOL IV ; Start 02/13/19 at 19:30 Ondansetron HCl (Zofran Inj) 4 mg Q6H PRN IV NAUSEA/VOMITING; Start 02/13/19 at 19:30 Acetaminophen (Tylenol Tab) 650 mg Q6H PRN PO .PAIN 1-3 OR TEMP Last administered on 02/15/19 06:37; Admin Dose 650 MG; Start 02/13/19 at 19:30 Docusate Sodium (Colace) 200 mg Q12H PO Last administered on 02/15/19 08:39; Admin Dose 200 MG; Start 02/13/19 at 19:30 Magnesium Hydroxide (Milk Of Mag) 30 ml DAILY PRN PO .CONSTIPATION; Start 02/13/19 at 19:30 Bisacodyl (Dulcolax) 5 mg DAILY PRN PO .CONSTIPATION; Start 02/13/19 at 19:30 Sodium Biphosphate/ Sodium Phosphate (Fleet Enema) 133 ml DAILY PRN ID .CONS TIPATION; Start 02/13/19 at 19:30 Zolpidem Tartrate (Ambien) 5 mg QHS PRN PO .INSOMNIA Last administered on 02/14/19 21:25; Admin Dose 5 MG; Start 02/13/19 at 19:30 Senna (Senokot) 2 tab BID PO Last administered on 02/15/19 08:39; Admin Dose 2 TAB; Start 02/13/19 at 21:00 Simethicone (Mylicon) 80 mg Q8 PO Last administered on 02/15/19at 06:37; Admin Dose 80 MG; Start 02/13/19 at 22:00 Carbidopa/Levodopa (Sinemet (25/ 100)) 1.5 tab TID PO Last administered on 02/15/19at 12:50; Admin Dose 1.5 TAB; Start 02/14/19 at 13:00 Patient Own Medication 1 ea QPM PO Last administered on 02/14/19at 21:34; Admin Dose 1 EA; Start 02/14/19 at 21:00 Lactulose (Enulose) 20 gm Q8 PO ; Start 02/15/19 at 21:00 JULIO CESAR VALLE MD Feb 15, 2019 13:14
--- NOTE | 2019-02-15 13:22 | CONS ---
Assessment/Plan Assessment/Plan Assessment/Plan (Recall) 83 M c/ reported Hx of Parkinson's disease x 20 years...who presents for evaluation of GI Sx.. 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 P: Continue Sinemet 25/100mg to 1.5 tabs tid for now Cont Neupro as ordered Agree w/ Lubiprostone if not complicated by excessive nausea.. Other constipation management per primary PT/OT as tolerated Will follow clinically Consultation Date/Type/Reason Admit Date/Time Feb 13, 2019 at 15:19 Type of Consult Neurology Reason for Consultation Parkinsons Requesting Provider: KEVIN PELAEZ Date/Time of Note DATE: 02/15/19 TIME: 13:21 24 HR Interval Summary Free Text/Dictation Continues acute care Exam/Review of Systems Exam Vitals Vital Signs Date Temp Pulse Resp B/P (MAP) Pulse Ox O2 O2 Flow FiO2 Time Delivery Rate 02/15/19 98.1 67 20 147/65 93 07:35 (92) 02/14/19 Room Air 07:42 Intake and Output 02/14/19 02/14/19 02/15/19 1515:00 23:00 07:00 IntakeIntake Total 600 ml BalanceBalance 600 ml Results Result Diagram: 02/14/19 0435 02/14/19 0436 Medications Medication Current Medications Alprazolam (Xanax) 0.25 mg BID PRN PO ANXIETY Last administered on 02/15/19at 06:37; Admin Dose 0.25 MG; Start 02/13/19 at 19:30 Escitalopram Oxalate (Lexapro) 20 mg DAILY PO Last administered on 02/15/19at 08:39; Admin Dose 20 MG; Start 02/14/19 at 09:00 Lubiprostone (Amitiza) 24 mcg BID PO Last administered on 02/15/19at 08:39; Admin Dose 24 MCG; Start 02/13/19 at 21:00 Patient Own Medication 1 ea DAILY TRANSDERM Last administered on 02/15/19at 08:55; Admin Dose 1 EA; Start 02/14/19 at 15:00; Status Hold IV Flush (NS 3 ml) 3 ml PER PROTOCOL IV ; Start 02/13/19 at 19:30 Ondansetron HCl (Zofran Inj) 4 mg Q6H PRN IV NAUSEA/VOMITING; Start 02/13/19 at 19:30 Acetaminophen (Tylenol Tab) 650 mg Q6H PRN PO .PAIN 1-3 OR TEMP Last administered on 02/15/19 06:37; Admin Dose 650 MG; Start 02/13/19 at 19:30 Docusate Sodium (Colace) 200 mg Q12H PO Last administered on 02/15/19 08:39; Admin Dose 200 MG; Start 02/13/19 at 19:30 Magnesium Hydroxide (Milk Of Mag) 30 ml DAILY PRN PO .CONSTIPATION; Start 02/13/19 at 19:30 Bisacodyl (Dulcolax) 5 mg DAILY PRN PO .CONSTIPATION; Start 02/13/19 at 19:30 Sodium Biphosphate/ Sodium Phosphate (Fleet Enema) 133 ml DAILY PRN [place] .CONSTIPATION; Start 02/13/19 at 19:30 Zolpidem Tartrate (Ambien) 5 mg QHS PRN PO .INSOMNIA Last administered on 02/14/19 21:25; Admin Dose 5 MG; Start 02/13/19 at 19:30 Senna (Senokot) 2 tab BID PO Last administered on 02/15/19 08:39; Admin Dose 2 TAB; Start 02/13/19 at 21:00 Simethicone (Mylicon) 80 mg Q8 PO Last administered on 02/15/19 06:37; Admin Dose 80 MG; Start 02/13/19 at 22:00 Carbidopa/Levodopa (Sinemet (25/ 100)) 1.5 tab TID PO Last administered on 02/15/19 12:50; Admin Dose 1.5 TAB; Start 02/14/19 at 13:00 Patient Own Medication 1 ea QPM PO Last administered on 02/14/19 21:34; Admin Dose 1 EA; Start 02/14/19 at 21:00; Status Hold Lactulose (Enulose) 20 gm Q8 PO ; Start 02/15/19 at 21:00 SUSANNA GALLEGOS Feb 15, 2019 13:22
[2019-02-15 13:25] VITALS: BP 119/56; PULSE 74; RESP 18
[2019-02-15 20:00] VITALS: BP 130/65; PULSE 76; RESP 19
[2019-02-15] MEDS: LACTULOSE 30ML CUP PO SCH (20:58)
[2019-02-16 02:24] VITALS: BP 110/56; PULSE 66; RESP 18
[2019-02-16] MEDS: LACTULOSE 30ML CUP PO SCH (06:07)
[2019-02-16 07:46] VITALS: BP 154/69; PULSE 71; RESP 18
[2019-02-16] MEDS: SENNA TAB PO SCH (08:26)
[2019-02-16] MEDS: CARBIDOPA/LEVODOPA (25/100) TAB PO SCH ×2 (08:26→12:05)
[2019-02-16] MEDS: DOCUSATE SODIUM 100 MG CAP PO SCH (08:26)
[2019-02-16] MEDS: LUBIPROSTONE 24 MCG CAP PO SCH (08:26)
[2019-02-16] MEDS: ESCITALOPRAM 10 MG TAB PO SCH (08:26)
[2019-02-16] MEDS ORDERED: LACT20SO2 PO (11:48)
--- NOTE | 2019-02-16 11:50 | PDOCDIS ---
Discharge Instructions DIAGNOSIS Discharge Diagnosis Constipation CONDITION [id number] Patient Condition: [id number] Stable FOLLOW UP/APPOINTMENTS Follow-up Plan Start taking lactulose to manage your constipation JULIO CESAR VALLE MD Feb 16, 2019 11:50
--- NOTE | 2019-02-16 13:49 | DS ---
Date/Time of Note Date/Time of Note DATE: 02/16/19 TIME: 13:49 Discharge Summary Admission/Discharge Info Admit Date/Time Feb 13, 2019 at 15:19 Discharge Date/Time Feb 16, 2019 at 13:04 Discharge Diagnosis Constipation Patient Condition: Stable Hospital Course 83 yo male with h/o PD presents with abdominal pain and found to have marked constipation 2/2 ileus He was started on a bowel regimen with improvement I suggested he hold anticholinergic medications as well I provided a script for lactulose at discharge Home Meds Active Scripts Lactulose* (Lactulose*) 20 Gm/30 Ml Solution, 20 GM PO Q8 for 60 Days, #180 DOSE 5 Refills Prov:JULIO CESAR VALLE MD 02/16/19 Reported Medications Lubiprostone* (Amitiza*) 24 Mcg Capsule, 24 MCG PO BID, #60 CAP 02/13/19 Escitalopram Oxalate* (Lexapro*) 20 Mg Tablet, 20 MG PO DAILY, #30 TAB 02/13/19 Carbidopa/Levodopa (Sinemet 25-100 mg Tablet) 1 Each Tablet, 1 EACH PO TID, TAB 02/13/19 Alprazolam* (Alprazolam*) 0.25 Mg Tablet, 0.25 MG PO BID PRN for ANXIETY, TAB 02/13/19 Discontinued Reported Medications [Nuplazid] No Conflict Check, 34 MG PO DAILY 02/13/19 Rotigotine (NEUPRO) 1 Each Patch.td24, 1 EACH TD DAILY 8MG 02/13/19 Mirabegron (Myrbetriq) 50 Mg Tab.er.24h, 50 MG PO DAILY, TAB 02/13/19 Follow-up Plan Start taking lactulose to manage your constipation Primary Care Provider Not On Staff Doctor JULIO CESAR VALLE MD Feb 16, 2019 13:49
== END 2019-02-16 13:04 | disposition home or self-care (01) | DRG 390 ==
LOC: E/R 11:13 → MS1 15:19
PROVIDERS: ADMIT Internal Medicine; ATTEND Internal Medicine
DX: K56.7 Ileus, unspecified (principal); G20 Parkinson's disease; F32.9 Major depressive disorder, single episode, unspecified; K59.00 Constipation, unspecified
CPT/HCPCS: 74176; 80048; 80053; 81003; 83036; 83690; 83735; 84100; 84484; 85025; 87081; 93005; J3480